=== PATIENT | male | born 1975 | race Caucasian/White ===

== ENCOUNTER 2020-09-11 22:26 | Emergency (ER) | payer OTHER ==
[~2020-09-11] VITALS: Ht 154.9 cm; Wt 90.7 kg
[~2020-09-11 22:26] MED LIST: ACHD5005 PO; CEPH-507 PO; CPR500T PO; MEPE50TA PO; METH4TAB PO; NAPR-243 PO
[2020-09-11 22:30] VITALS: BP 136/97
--- NOTE | 2020-09-11 23:07 | ED EENT ---
History of Present Illness General Chief Complaint: Dental Problems/Pain Stated Complaint: BACK PAIN, History of Present Illness Date Seen by Provider: Sep 11, 2020 Time Seen by Provider: 22:50 Initial Comments 44-year-old male presents for approximately one month history of left low back pain. He has not noted any blood in his urine but is concerned about a kidney stone. He has had a kidney stone in the past. He has not taken any medication for pain or nausea today. He did take hydrocodone yesterday. Pain 03/11 Timing/Duration: other (for one month) Severity: mild Prearrival Treatment: no prearrival treatment Associated Symptoms: denies symptoms Allergies and Home Medications Allergies Coded Allergies: No Known Drug Allergies (Unverified , 11/09/15) Home Medications Cephalexin 500 Mg Capsule, 1,000 MG PO BID Prescribed by: JEVON MELO on 11/09/151951 Methylprednisolone 4 Mg Tab.ds.pk, 4 MG PO UD Prescribed by: JEVON MELO on 11/09/151951 Patient Home Medication List Home Medication List Reviewed: Yes Review of Systems Review of Systems Constitutional: no symptoms reported, see HPI Gastrointestinal: no symptoms reported, see HPI; No nausea, No vomiting Musculoskeletal: see HPI, back pain All Other Systems Reviewed Negative Unless Noted: Yes Past Dwujogi-Jmgimd-Tpssaj Hx Past Med/Social Hx: Reviewed Nursing Past Med/Soc Hx Patient Social History Recent Foreign Travel: No Contact w/Someone Who Travel: No Physical Exam Height, Weight, BMI Height: 6'2" Weight: 260lbs. oz. [id number]; BMI Method:Stated General Appearance: WD/WN, no apparent distress Cardiovascular: normal peripheral pulses, regular rate, rhythm Respiratory: chest non-tender, lungs clear, normal breath sounds Gastrointestinal: normal bowel sounds, non tender, soft, other (left flank, trace tenderness) Neurologic/Psychiatric: no motor/sensory deficits, alert, normal mood/affect, oriented x 3 Skin: normal color, warm/dry Progress/Results/Core Measures Results/Orders Lab Results Laboratory Tests Test 09/11/20 22:40 Range/Units Urine Color YELLOW Urine Clarity CLEAR Urine pH 6.0 5-9 Urine Specific [place] 1.025 H 1.016-1.022 Urine Protein NEGATIVE NEGATIVE Urine Glucose (UA) 3+ H NEGATIVE Urine Ketones 1+ H NEGATIVE Urine Nitrite NEGATIVE NEGATIVE Urine Bilirubin NEGATIVE NEGATIVE Urine Urobilinogen 1.0 < = 1.0 MG/DL Urine Leukocyte Esterase NEGATIVE NEGATIVE Urine RBC (Auto) NEGATIVE NEGATIVE Urine RBC NONE /HPF Urine WBC NONE /HPF Urine Squamous Epithelial Cells 2-5 /HPF Urine Crystals NONE /LPF Urine Bacteria NEGATIVE /HPF Urine Casts NONE /LPF Urine Mucus NEGATIVE /LPF Urine Culture Indicated NO My Orders Orders - NAVNEET SALGADO Ua Culture If Indicated (09/11/20 23:10) Ketorolac Injection (Toradol Injection) (09/11/20 23:14) Departure Impression Primary Impression: Mid back pain on left side Additional Impression: Urolithiasis Qualified Codes: N21.8 - Other lower urinary tract calculus Disposition: HOME, SELF-CARE Condition: Improved Departure-Patient Inst. Decision time for Depature: 23:00 Referrals: NANDA DELAROSA MD (PCP/Family) Primary Care Physician Patient Instructions: Kidney Stones (DC) Add. Discharge Instructions: Alternate between ibuprofen 600 mg and Tylenol 650 mg every 4 hours for pain. Follow-up with Dr. Delarosa if symptoms are not improving or worsen. Increase water intake, 16 ounces every 2 hours while awake. Return to the emergency department for new, urgent health care problems. All discharge instructions reviewed with patient and/or family. Voiced u nderstanding. Copy Copies To 1: NANDA DELAROSA MD, AMY ARNP Sep 11, 2020 23:07
[2020-09-11] MEDS ORDERED: KETOROLAC 60 MG/2 ML VIAL IM STA (23:14)
[2020-09-11 23:15] LABS: BILIRUBIN,URINE NEGATIVE (NEGATIVE); CLARITY,URINE CLEAR; COLOR,URINE YELLOW; GLUCOSE, URINE (UA) 3+ (NEGATIVE); KETONES,URINE 1+ (NEGATIVE); LEUKOCYTE ESTERASE ,URINE NEGATIVE (NEGATIVE); NITRITE,URINE NEGATIVE (NEGATIVE); PROTEIN,URINE NEGATIVE (NEGATIVE)
[2020-09-11 23:34] LABS: BACTERIA,URINE NEGATIVE /HPF
== END 2020-09-11 23:45 | disposition home or self-care (01) ==
LOC: EDUNIT# 22:26 → ER 22:27
DX: N20.9 Urinary calculus, unspecified (principal); Z79.52 Long term (current) use of systemic steroids
CPT/HCPCS: 81000; 99284

== ENCOUNTER → 2021-06-15 | Outpatient (CLI) | payer OTHER | LOC: LABNPT 08:43 | PROVIDERS: ATTEND Internal Medicine | DX: U07.1 COVID-19 (principal) | CPT/HCPCS: 87635 ==

== ENCOUNTER 2021-09-07 09:22 | Emergency (ER) | payer OTHER ==
[~2021-09-07] VITALS: Ht 187 cm; Wt 90.7 kg
[2021-09-07 09:30] VITALS: BP 149/91
[2021-09-07] MEDS ORDERED: NS IV 1000 ML 1,000 ML IV STA (10:01)
[2021-09-07 10:09] LABS: BASOPHILS # (AUTO) 0.1 10^3/uL (0.0-0.1); BASOPHILS % (AUTO) 1 % (0-10); EOSINOPHILS # (AUTO) 0.4 10^3/uL (0.0-0.3); EOSINOPHILS % (AUTO) 3 % (0-10); HEMATOCRIT 45 % (40-54); HEMOGLOBIN 15.7 g/dL (13.3-17.7); LYMPHOCYTES # (AUTO) 2.7 10^3/uL (1.0-4.0); LYMPHOCYTES % (AUTO) 23 % (12-44); MEAN CORPUSCULAR HEMOGLOBIN 31 pg (25-34); MEAN CORPUSCULAR HGB CONC 35 g/dL (32-36); MEAN CORPUSCULAR VOLUME 88 fL (80-99); MEAN PLATELET VOLUME 9.3 fL (9.0-12.2); MONOCYTES # (AUTO) 0.9 10^3/uL (0.0-1.0); MONOCYTES % (AUTO) 8 % (0-12); NEUTROPHILS # (AUTO) 7.4 10^3/uL (1.8-7.8); NEUTROPHILS % (AUTO) 65 % (42-75); PLATELET COUNT 270 10^3/uL (130-400); WHITE BLOOD COUNT 11.4 10^3/uL (4.3-11.0)
[2021-09-07] MEDS ORDERED: KETOROLAC 30 MG/ML VIAL IVP STA (10:12)
[2021-09-07 10:23] LABS: ALBUMIN 4.4 GM/DL (3.2-4.5)
[2021-09-07 10:24] LABS: CALCIUM 9.7 MG/DL (8.5-10.1)
[2021-09-07 10:26] LABS: TOTAL PROTEIN 7.8 GM/DL (6.4-8.2)
[2021-09-07 10:27] LABS: BILIRUBIN,TOTAL 0.4 MG/DL (0.1-1.0)
[2021-09-07 10:29] LABS: CREATININE SERUM 0.78 MG/DL (0.60-1.30)
--- NOTE | 2021-09-07 10:59 | ED GU-Male ---
General Chief Complaint: - Reproductive Stated Complaint: URINATING BLOOD,KIDNEY PAIN Nursing Triage Note: ARRIVED VIA AMB TO ROOM 07 WITH COMPLAINTS OF RIGHT SIDED KIDNEY DISCOMFORT X2 DAYS AND STARTED PEEING BLOOD THIS AM. Source: patient Exam Limitations: no limitations History of Present Illness Date Seen by Provider: Sep 07, 2021 Time Seen by Provider: 10:01 Initial Comments Here with complaint of right flank pain and blood in his urine. States the pain is been going on for 2 days. Blood started today. He works here at the hospital. Does have history of kidney stones and states this feels like previous kidney stones in the past. Denies fever or chills. He is vaccinated for Covid and has no upper respiratory symptoms. Denies nausea or vomiting. Timing/Duration: getting worse, other (2 days ago) Severity/Quality: aching, burning Location: right flank, urethral Radiation: right flank Activities at Onset: none Prior Genitourinary Problems: similar symptoms Modifying Factors: Worsens With Urinating Associated Symptoms: abdominal pain, dysuria; No fever/chills; lower back pain (Right-sided); No nausea/vomiting Allergies and Home Medications Allergies Coded Allergies: No Known Drug Allergies (Unverified , 11/09/15) Patient Home Medication List Home Medication List Reviewed: Yes Discontinued Medications Cephalexin (Keflex) 500 Mg Capsule, 1,000 MG PO BID Discontinued Reason: No Longer Taking Prescribed by: JEVON MELO on 11/09/151951 Last Action: Discontinued Methylprednisolone (Medrol) 4 Mg Tab.ds.pk, 4 MG PO UD Discontinued Reason: No Longer Taking Prescribed by: JEVON MELO on 11/09/151951 Last Action: Discontinued Review of Systems Review of Systems Constitutional: see HPI; No chills, No fever EENTM: see HPI, no symptoms reported Respiratory: No cough, No short of breath Cardiovascular: No chest pain, No edema Gastrointestinal: see HPI; No diarrhea, No nausea, No vomiting Genitourinary: flank pain, hematuria Musculoskeletal: see HPI; No muscle pain, No neck pain Skin: no symptoms reported All Other Systemes Reviewed Negative Unless Noted: Yes Past Luejmva-Cquehx-Tylcld Hx Patient Social History Tobacco Use?: No Substance use?: No Alcohol Use?: No Immunizations Up To Date Second COVID19 Vaccination [place]: 08/22 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: [employer] Seasonal Allergies Seasonal Allergies: No Past Medical History Surgeries: Yes (NECK - LYMPH NODE REMOVABLE) Respiratory: No Cardiac: No Neurological: No Genitourinary: Yes Kidney Stones Gastrointestinal: No Musculoskeletal: No Endocrine: Yes Diabetes, Non-Insulin dep HEENT: No Cancer: No Psychosocial: No Integumentary: No Blood Disorders: No Family Medical History Reviewed Nursing Family Hx No Pertinent Family Hx Physical Exam Vital Signs Vital Signs - First Documented 09/07/21 09:30 Temp 36.4 Pulse 103 Resp 16 B/P (MAP) 149/91 (110) Pulse Ox 97 O2 Delivery Room Air Capillary Refill : Less Than 3 Seconds Height, Weight, BMI Height: 6'2" Weight: 260lbs. oz. 117.492795ep; 25.00 BMI Method:Stated General Appearance: WD/WN, no apparent distress Neck: full range of motion, supple Cardiovascular: regular rate, rhythm, no murmur Respiratory: lungs clear, normal breath sounds Gastrointestinal: non tender, soft Back: normal inspection, no CVA tenderness, no vertebral tenderness Extremities: non-tender, normal inspection Neurologic/Psychiatric: alert, oriented x 3 Skin: normal color, warm/dry Progress/Results/Core Measures Suspected Sepsis SIRS Temperature: Pulse: 103 Respiratory Rate: 16 Laboratory Tests 09/07/21 09:36: White Blood Count 11.4H Blood Pressure 149 /91 Mean: 110 Laboratory Tests 09/07/21 09:36: Creatinine 0.78, Platelet Count 270, Total Bilirubin 0.4 Results/Orders Lab Results Laboratory Tests Test 09/07/21 09:36 09/07/21 11:14 Range/Units White Blood Count 11.4 H 4.3-11.0 10^3/uL Red Blood Count 5.10 4.30-5.52 10^6/uL Hemoglobin 15.7 13.3-17.7 g/dL Hematocrit 45 40-54 % Mean Corpuscular Volume 88 80-99 fL Mean Corpuscular Hemoglobin 31 25-34 pg Mean Corpuscular Hemoglobin Concent 35 32-36 g/dL Red Cell Distribution Width 12.5 10.0-14.5 % Platelet Count 270 130-400 10^3/uL Mean Platelet Volume 9.3 9.0-12.2 fL Immature Granulocyte % (Auto) 0 % Neutrophils (%) (Auto) 65 42-75 % Lymphocytes (%) (Auto) 23 12-44 % Monocytes (%) (Auto) 8 0-12 % Eosinophils (%) (Auto) 3 0-10 % Basophils (%) (Auto) 1 0-10 % Neutrophils # (Auto) 7.4 1.8-7.8 10^3/uL Lymphocytes # (Auto) 2.7 1.0-4.0 10^3/uL Monocytes # (Auto) 0.9 0.0-1.0 10^3/uL Eosinophils # (Auto) 0.4 H 0.0-0.3 10^3/uL Basophils # (Auto) 0.1 0.0-0.1 10^3/uL Immature Granulocyte # (Auto) 0.0 0.0-0.1 10^3/uL Sodium Level 142 135-145 MMOL/L Potassium Level 4.0 3.6-5.0 MMOL/L Chloride Level 106 98-107 MMOL/L Carbon Dioxide Level 23 21-32 MMOL/L Anion Gap 13 5-14 MMOL/L Blood Urea Nitrogen 8 7-18 MG/DL Creatinine 0.78 0.60-1.30 MG/DL Estimat Glomerular Filtration Rate 107 BUN/Creatinine Ratio 10 Glucose Level 115 H 70-105 MG/DL Calcium Level 9.7 8.5-10.1 MG/DL Corrected Calcium 9.4 8.5-10.1 MG/DL Total Bilirubin 0.4 0.1-1.0 MG/DL Aspartate Amino Transf (AST/SGOT) 18 5-34 U/L Alanine Aminotransferase (ALT/SGPT) 18 0-55 U/L Alkaline Phosphatase 72 40-136 U/L Total Protein 7.8 6.4-8.2 GM/DL Albumin 4.4 3.2-4.5 GM/DL Urine Color DARK YELLOW Urine Clarity CLOUDY Urine pH 7.0 5-9 Urine Specific [place] 1.015 L 1.016-1.022 Urine Protein 1+ H NEGATIVE Urine Glucose (UA) NEGATIVE NEGATIVE Urine Ketones NEGATIVE NEGATIVE Urine Nitrite NEGATIVE NEGATIVE Urine Bilirubin NEGATIVE NEGATIVE Urine Urobilinogen 1.0 < = 1.0 MG/DL Urine Leukocyte Esterase 2+ H NEGATIVE Urine RBC (Auto) 3+ H NEGATIVE Urine RBC >100 H /HPF Urine WBC 25-50 H /HPF Urine Squamous Epithelial Cells 2-5 /HPF Urine Renal Epithelial Cells 0-2 /HPF Urine Crystals NONE /LPF Urine Bacteria MODERATE H /HPF Urine Casts NONE /LPF Urine Mucus NEGATIVE /LPF Urine Culture Indicated YES My Orders Orders - CHRIS ALDANA MD Cbc With Automated Diff (09/07/21 10:01) Comprehensive Metabolic Panel (09/07/21 10:01) Ua Culture If Indicated (09/07/21 10:01) Ns Iv 1000 Ml (Sodium Chloride 0.9%) (09/07/21 10:01) Ed Iv/Invasive Line Start (09/07/21 10:01) Ketorolac Injection (Toradol Injection) (09/07/21 10:12) Urine Culture (09/07/21 11:14) Vital Signs/I&O 09/07/21 09:30 Temp 36.4 Pulse 103 Resp 16 B/P (MAP) 149/91 (110) Pulse Ox 97 O2 Delivery Room Air Capillary Refill : Less Than 3 Seconds Blood Pressure Mean: 110 Progress Note : Progress Note Seen and evaluated. IV, labs, UA, normal saline 1 L bolus and Toradol 30 mg IV ordered. We did discuss options for evaluation including imaging. Patient has known history of kidney stones and states this feels like that. If all work-up seems to lead towards that, we will do conservative treatment outpatient with pain medicines and antibiotics and see if stone passes. Patient understands that there is some risk of missed cause but this does seem to be a likely source and he is otherwise stable currently. We will see how labs and urine play out. Monitor patient. 1210: Pain-free. UA is concerning for urinary tract infection and blood and he is likely try to pass a stone. We will try this outpatient conservatively and then he will follow-up if not improved or return if worsening. Discharged home with return precautions. Patient verbalized understanding instructions and agreement with plan. Departure Impression Primary Impression: Hematuria Qualified Codes: R31.9 - Hematuria, unspecified Additional Impressions: Nephrolithiasis Urinary tract infection Qualified Codes: N30.01 - Acute cystitis with hematuria Disposition: ADMITTED INPATIENT Condition: Stable Departure-Patient Inst. Decision time for Depature: 12:13 Referrals: NANDA DELAROSA MD (PCP/Family) Primary Care Physician HILARY BRAY MD Patient Instructions: Kidney Stone, Adult ED, Urinary Tract Infections in Adults Add. Discharge Instructions: All discharge instructions reviewed with patient and/or family. Voiced understanding. You may take Tylenol/acetaminophen 1000 mg every 8 hours as needed for pain. You may take ibuprofen 600 mg every 8 hours as needed for pain. Do not take the Tylenol/acetaminophen if you are taking the prescribed pain medicine as they both have acetaminophen in them. Drink plenty of fluids. Return for worse pain, fever, vomiting, weakness, breathing problems or other concerns as needed. Strain your urine to evaluate for stone. You may follow-up with if not improving or if stone does not pass. Scripts Hydrocodone Bit/Acetaminophen (HYDROcodone/APAP 5 MG/325 MG TAB) 1 Tab Tab 1 TAB PO Q6H for Pain, #12 TAB 0 Refills Prov: CHRIS ALDANA MD 09/07/21 Cephalexin (Cephalexin) 500 Mg Tablet 500 MG PO BID, #14 TAB 0 Refills Prov: CHRIS ALDANA MD 09/07/21 Copy Copies To 1: NANDA DELAROSA MD, TIMOTHY D MD Sep 07, 2021 10:59
[2021-09-07 11:23] LABS: BILIRUBIN,URINE NEGATIVE (NEGATIVE); CLARITY,URINE CLOUDY; COLOR,URINE DARK YELLOW; GLUCOSE, URINE (UA) NEGATIVE (NEGATIVE); KETONES,URINE NEGATIVE (NEGATIVE); LEUKOCYTE ESTERASE ,URINE 2+ (NEGATIVE); NITRITE,URINE NEGATIVE (NEGATIVE); PROTEIN,URINE 1+ (NEGATIVE)
[2021-09-07 11:40] LABS: BACTERIA,URINE MODERATE /HPF; RBC,URINE >100 /HPF; WBC,URINE 25-50 /HPF
[2021-09-07 11:41] LABS: RENAL EPITHELIAL CELLS,URINE 0-2 /HPF
[2021-09-07] MEDS ORDERED: ACHD5005 PO (12:15)
[2021-09-07] MEDS ORDERED: CEPH500T PO (12:15)
== END 2021-09-07 12:24 | disposition other institution (70) ==
LOC: EDUNIT# 09:22 → ER 09:24
DX: R31.9 Hematuria, unspecified (principal); N20.0 Calculus of kidney; N39.0 Urinary tract infection, site not specified; E11.9 Type 2 diabetes mellitus without complications
CPT/HCPCS: 36415; 80053; 81000; 85025; 87088